=== PATIENT | male | born 1990 | race Caucasian/White ===

== ENCOUNTER → 2020-08-17 | Outpatient (CLI) | payer OTHER ==
[~2020-08-17] MED LIST: B-121000 MCG PO; CETIRIZINE HCL10 MG PO; CLEOCIN HCL300 MG PO; FUROSEMIDE40 MG PO; HYDROCHLOROTHIA25 MG PO; LEVOFLOXACIN500 MG PO; LIPITOR TAB 1010 MG PO; LOSARTAN-HCTZ1 EAC2 PO; MONTELUKAST SOD10 MG PO; MULTIPLE VITAM1 EAC1 PO; NEURONTIN300 MG PO; PRILOSEC OTC20 MG PO; WELLBUTRIN SR150 M1 PO
== END ==
LOC: OPSV 12:06
DX: M86.9 Osteomyelitis, unspecified (principal)
CPT/HCPCS: G0463

== ENCOUNTER 2020-08-18 08:35 | Emergency (ER) | payer OTHER ==
[~2020-08-18 08:35] MED LIST changes: -B-121000 MCG PO; -CETIRIZINE HCL10 MG PO; -CLEOCIN HCL300 MG PO; -FUROSEMIDE40 MG PO; -LEVOFLOXACIN500 MG PO; -LIPITOR TAB 1010 MG PO; -LOSARTAN-HCTZ1 EAC2 PO; -MONTELUKAST SOD10 MG PO; -MULTIPLE VITAM1 EAC1 PO; -NEURONTIN300 MG PO; -WELLBUTRIN SR150 M1 PO
[2020-08-18 09:57] LABS: HEMOGLOBIN 14.3 gm/dl (14.0-17.5); RED BLOOD COUNT 4.63 M/UL (4.20-5.50); WHITE BLOOD COUNT 9.3 K/UL (4.5-11.0)
[2020-08-18 10:39] LABS: BUN/CREATININE RATIO 14 (0-10)
[2020-08-18] MEDS ORDERED: LIPITOR TAB 1010 MG PO (11:35)
[2020-08-18] MEDS ORDERED: WELLBUTRIN SR150 M1 PO (11:40)
[2020-08-18] MEDS ORDERED: NEURONTIN300 MG PO (11:41)
[2020-08-18] MEDS ORDERED: LOSARTAN-HCTZ1 EAC2 PO (11:41)
[2020-08-18] MEDS ORDERED: CETIRIZINE HCL10 MG PO (11:42)
[2020-08-18] MEDS ORDERED: FUROSEMIDE40 MG PO (11:43)
[2020-08-18] MEDS ORDERED: MONTELUKAST SOD10 MG PO (11:43)
[2020-08-18] MEDS ORDERED: MULTIPLE VITAM1 EAC1 PO (11:44)
[2020-08-18] MEDS ORDERED: B-121000 MCG PO (11:44)
== END 2020-08-18 13:58 | disposition home or self-care (01) ==
LOC: ER1 08:35 → CDU 10:47 → ER1 13:58 → CDU 14:29
PROVIDERS: Emergency Medicine
DX: T82.594A Other mechanical complication of infusion catheter, initial encounter (principal); L03.115 Cellulitis of right lower limb; E87.6 Hypokalemia; I10 Essential (primary) hypertension; E66.9 Obesity, unspecified; F41.9 Anxiety disorder, unspecified; F32.9 Major depressive disorder, single episode, unspecified; L98.499 Non-pressure chronic ulcer of skin of other sites with unspecified severity; I87.8 Other specified disorders of veins; Z20.822 Contact with and (suspected) exposure to COVID-19
CPT/HCPCS: 71045; 73060; 73630; 80053; 81001; 82550; 82553; 83605; 83874; 84484; 85025; 85652; 86140; 87040; 93005; 96374; 99284; G0463; J2543; U0002

== ENCOUNTER 2020-10-17 06:36 | Inpatient (IN) | payer OTHER ==
[~2020-10-17] VITALS: Ht 188 cm; Wt 208.2 kg
[~2020-10-17 06:36] MED LIST changes: +B-121000 MCG PO; +CETIRIZINE HCL10 MG PO; +FUROSEMIDE40 MG PO; +LIPITOR TAB 1010 MG PO; +LOSARTAN-HCTZ1 EAC2 PO; +MONTELUKAST SOD10 MG PO; +MULTIPLE VITAM1 EAC1 PO; +NEURONTIN300 MG PO; +WELLBUTRIN SR150 M1 PO
[2020-10-17 09:34] LABS: HEMOGLOBIN 13.1 gm/dl (14.0-17.5); RED BLOOD COUNT 4.49 M/UL (4.20-5.50)
[2020-10-17 09:49] LABS: BUN/CREATININE RATIO 12 (0-10)
[2020-10-18 07:16] LABS: HEMOGLOBIN 11.6 gm/dl (14.0-17.5); RED BLOOD COUNT 4.15 M/UL (4.20-5.50)
[2020-10-18 07:20] LABS: WHITE BLOOD COUNT 8.4 K/UL (4.5-11.0)
[2020-10-18 07:23] LABS: BUN/CREATININE RATIO 12 (0-10)
--- NOTE | 2020-10-18 10:27 | NUR ---
pharmacy will bring wellbutrin pill
[2020-10-18] MEDS ORDERED: CLEOCIN HCL300 MG PO (14:34)
[2020-10-18] MEDS ORDERED: LEVOFLOXACIN500 MG PO (14:34)
--- NOTE | 2020-10-18 15:32 | NUR ---
notified joseph sanchez of patient getting oxycodone and will be ok to d/c patient.
== END 2020-10-18 17:35 | disposition home or self-care (01) | DRG 603 ==
LOC: ER1 06:36 → CDU 11:35 → M/S 10-18 04:16
PROVIDERS: Family Medicine; Physician Assistant Medical; ADMIT Internal Medicine
DX: L03.115 Cellulitis of right lower limb (principal); L97.418 Non-pressure chronic ulcer of right heel and midfoot with other specified severity; F32.9 Major depressive disorder, single episode, unspecified; F41.9 Anxiety disorder, unspecified; I10 Essential (primary) hypertension; Z20.822 Contact with and (suspected) exposure to COVID-19; E66.01 Morbid (severe) obesity due to excess calories; F17.210 Nicotine dependence, cigarettes, uncomplicated; I83.014 Varicose veins of right lower extremity with ulcer of heel and midfoot; Z96.698 Presence of other orthopedic joint implants; Z82.49 Family history of ischemic heart disease and other diseases of the circulatory system; Z83.3 Family history of diabetes mellitus; Z98.84 Bariatric surgery status; Z79.899 Other long term (current) drug therapy
CPT/HCPCS: 36415; 73590; 73701; 80048; 83605; 83735; 85025; 85027; 86140; 87040; 93971; 96374; 99285; J0696; J1956; J3370; J7030; J7050; J7070; Q9967; U0002

== ENCOUNTER 2020-11-07 21:35 | Emergency (ER) | payer OTHER ==
[~2020-11-07 21:35] MED LIST changes: +CLEOCIN HCL300 MG PO; +LEVOFLOXACIN500 MG PO
[2020-11-07 22:39] LABS: HEMOGLOBIN 12.6 gm/dl (14.0-17.5); RED BLOOD COUNT 4.2 M/UL (4.20-5.50); WHITE BLOOD COUNT 10.5 K/UL (4.5-11.0)
[2020-11-07 23:02] LABS: BUN/CREATININE RATIO 18 (0-10)
== END 2020-11-08 02:08 | disposition home or self-care (01) ==
LOC: ER1 21:35
PROVIDERS: Physician Assistant
DX: R07.89 Other chest pain (principal); R06.02 Shortness of breath; I10 Essential (primary) hypertension; E78.5 Hyperlipidemia, unspecified; J45.909 Unspecified asthma, uncomplicated; E66.01 Morbid (severe) obesity due to excess calories; F17.210 Nicotine dependence, cigarettes, uncomplicated; Z86.73 Personal history of transient ischemic attack (TIA), and cerebral infarction without residual deficits; Z88.0 Allergy status to penicillin; Z20.822 Contact with and (suspected) exposure to COVID-19
CPT/HCPCS: 71045; 80053; 82550; 82553; 83874; 83880; 84484; 85025; 93005; 99285; U0002

== ENCOUNTER 2021-06-23 10:25 | Emergency (ER) | payer BC ==
[2021-06-23 11:13] LABS: HEMOGLOBIN 14.9 gm/dl (14.0-17.5); RED BLOOD COUNT 5.01 M/UL (4.20-5.50); WHITE BLOOD COUNT 9.8 K/UL (4.5-11.0)
[2021-06-23 11:29] LABS: BUN/CREATININE RATIO 18 (0-10)
== END 2021-06-23 13:44 | disposition left against medical advice (07) ==
LOC: ER1 10:25
PROVIDERS: Nurse Practitioner
DX: R07.9 Chest pain, unspecified (principal); I10 Essential (primary) hypertension; Z20.822 Contact with and (suspected) exposure to COVID-19
CPT/HCPCS: 0240U; 71045; 80053; 81001; 82550; 82553; 83735; 83880; 84100; 84484; 85025; 85379; 93005; 99283; J7030

== ENCOUNTER → 2021-08-18 | Outpatient (CLI) | payer BC | LOC: KOH-I 07-12 14:30 | DX: M79.604 Pain in right leg (principal) | CPT/HCPCS: 93971 ==

== ENCOUNTER 2021-09-27 05:11 | Inpatient (IN) | payer BC ==
[~2021-09-27] VITALS: Ht 188 cm; Wt 222.3 kg
[2021-09-27 05:56] LABS: HEMOGLOBIN 12.3 gm/dl (14.0-17.5); RED BLOOD COUNT 4.13 M/UL (4.20-5.50); WHITE BLOOD COUNT 8.6 K/UL (4.5-11.0)
[2021-09-27 06:17] LABS: BUN/CREATININE RATIO 15 (0-10)
[2021-09-27] MEDS ORDERED: AMLODIPINE BESY10 MG PO (12:46)
[2021-09-27] MEDS ORDERED: DULOXETINE HCL60 MG PO (12:47)
[2021-09-27] MEDS ORDERED: METOPROLOL SUC100 MG PO (12:48)
[2021-09-27] MEDS ORDERED: LOSARTAN-HCTZ1 EACH PO (12:48)
[2021-09-27] MEDS ORDERED: B-COMPLEX WITH1 EACH PO (12:49)
[2021-09-27] MEDS ORDERED: FISH OIL 1,0001 EACH PO (12:49)
[2021-09-27] MEDS ORDERED: MULTIVITAMIN1 EACH PO (12:50)
[2021-09-27] MEDS ORDERED: VITAMIN D325 MCG PO (12:52)
[2021-09-27] MEDS ORDERED: TIZANIDINE HCL4 MG PO (12:52)
[2021-09-28 02:36] LABS: HEMOGLOBIN 12.3 gm/dl (14.0-17.5); RED BLOOD COUNT 4.14 M/UL (4.20-5.50); WHITE BLOOD COUNT 8.4 K/UL (4.5-11.0)
[2021-09-28 03:16] LABS: BUN/CREATININE RATIO 17 (0-10)
[2021-09-29 03:15] LABS: HEMOGLOBIN 12.7 gm/dl (14.0-17.5); RED BLOOD COUNT 4.27 M/UL (4.20-5.50); WHITE BLOOD COUNT 9.2 K/UL (4.5-11.0)
[2021-09-29 03:27] LABS: BUN/CREATININE RATIO 19 (0-10)
[2021-09-29] MEDS ORDERED: ALDACTONE 25MG25 MG PO (09:36)
[2021-09-29] MEDS ORDERED: LOSARTAN POTASS50 MG PO (09:36)
== END 2021-09-29 12:45 | disposition home or self-care (01) | DRG 177 ==
LOC: ER1 05:11 → CDU 10:05 → M/S 18:22
PROVIDERS: Physician Assistant; ADMIT Internal Medicine Infectious Disease
PROC: 8E0ZXY6 Isolation (ICD-10-PCS; principal; 2021-09-27)
PROC: XW033E5 Introduction of Remdesivir Anti-infective into Peripheral Vein, Percutaneous Approach, New Technology Group 5 (ICD-10-PCS; 2021-09-27)
PROC: 3E0333Z Introduction of Anti-inflammatory into Peripheral Vein, Percutaneous Approach (ICD-10-PCS; 2021-09-27)
PROC: B24BZZZ Ultrasonography of Heart with Aorta (ICD-10-PCS; 2021-09-27)
DX: U07.1 COVID-19 (principal); I50.33 Acute on chronic diastolic (congestive) heart failure; Z68.44 Body mass index [BMI] 60.0-69.9, adult; L03.115 Cellulitis of right lower limb; E66.01 Morbid (severe) obesity due to excess calories; I11.0 Hypertensive heart disease with heart failure; J45.909 Unspecified asthma, uncomplicated; F41.9 Anxiety disorder, unspecified; I08.1 Rheumatic disorders of both mitral and tricuspid valves; Z96.641 Presence of right artificial hip joint; F32.A Depression, unspecified; Z98.84 Bariatric surgery status; Z90.89 Acquired absence of other organs; Z82.49 Family history of ischemic heart disease and other diseases of the circulatory system; Z83.3 Family history of diabetes mellitus; Z91.14 Patient's other noncompliance with medication regimen; Z79.899 Other long term (current) drug therapy
CPT/HCPCS: ECHO; 0240U; 36415; 71045; 80053; 82550; 82553; 83605; 83735; 83880; 84484; 85025; 85027; 85379; 87040; 93005; 93306; 94640; 94664; 94760; 96374; 96375; 99285; J0248; J0696; J1650; J1940; J2543; J3370; J7030

== ENCOUNTER → 2021-10-19 | Outpatient (CLI) | payer BC ==
[~2021-10-19] MED LIST changes: +ALDACTONE 25MG25 MG PO; +AMLODIPINE BESY10 MG PO; +B-COMPLEX WITH1 EACH PO; +DULOXETINE HCL60 MG PO; +FISH OIL 1,0001 EACH PO; +LOSARTAN POTASS50 MG PO; +LOSARTAN-HCTZ1 EACH PO; +METOPROLOL SUC100 MG PO; +MULTIVITAMIN1 EACH PO; +TIZANIDINE HCL4 MG PO; +VITAMIN D325 MCG PO
== END ==
LOC: WCC 07:05
DX: S91.101A Unspecified open wound of right great toe without damage to nail, initial encounter (principal); G47.30 Sleep apnea, unspecified; I11.0 Hypertensive heart disease with heart failure; I50.31 Acute diastolic (congestive) heart failure; R60.1 Generalized edema; E66.01 Morbid (severe) obesity due to excess calories; G60.3 Idiopathic progressive neuropathy; Z68.44 Body mass index [BMI] 60.0-69.9, adult; Z87.891 Personal history of nicotine dependence

== ENCOUNTER → 2021-10-19 | Outpatient (CLI) | payer BC | LOC: RAD 09:09 | DX: M79.671 Pain in right foot (principal) | CPT/HCPCS: 73630 ==

== ENCOUNTER → 2021-10-31 | Outpatient (CLI) | payer BC | END | disposition home or self-care (01) | LOC: WCC 07:23 | DX: S91.101A Unspecified open wound of right great toe without damage to nail, initial encounter (principal); X58.XXXA Exposure to other specified factors, initial encounter; I11.0 Hypertensive heart disease with heart failure; I50.31 Acute diastolic (congestive) heart failure; G47.30 Sleep apnea, unspecified; G60.3 Idiopathic progressive neuropathy; E66.01 Morbid (severe) obesity due to excess calories; Z68.44 Body mass index [BMI] 60.0-69.9, adult ==

== ENCOUNTER → 2021-11-09 | Outpatient (CLI) | payer BC ==
[~2021-11-09] VITALS: Ht 188 cm; Wt 222.3 kg
== END ==
LOC: OPSV 11-03 15:00
DX: L08.89 Other specified local infections of the skin and subcutaneous tissue (principal)
CPT/HCPCS: 96365; J0875; J7060